=== PATIENT | male | born 1960 | race Caucasian/White ===

== ENCOUNTER → 2016-12-05 | Outpatient (CLI) | payer BC ==
[~2016-12-05] MED LIST: ASPI81TA28 PO; ATOR-26 PO; LEVO100T7 PO; LISI-526 PO; METF-384 PO; VRPSR240 PO
--- NOTE | 2016-12-05 09:28 | DIAGNOSTIC IMAGING REPORT ---
MRI OF THE CERVICAL SPINE WITHOUT CONTRAST CLINICAL HISTORY: Left arm numbness. Neurologic symptoms. COMPARISON: MRI of the cervical spine November 08, 2011. TECHNIQUE: Utilizing a 1.5 Ginny magnet and dedicated coil, multiplanar, multiecho imaging of the cervical spine was performed without IV contrast. FINDINGS: Alignment of the cervical spine is anatomic. Vertebral body heights are maintained. There is no intracanalicular mass or fluid collection. Paravertebral soft tissues are unremarkable. No suspicious marrow replacement is present. C2-C3: The central canal and the neural foramen are patent. C3-C4: The central canal is patent. There is moderate left neural foraminal stenosis due to uncovertebral hypertrophy and facet arthrosis. There is mild right neural foraminal stenosis. C4-C5: There is disc bulge with ligamentous hypertrophy. There is moderate narrowing of the central canal. This indents the ventral aspect of the cord. Similar findings were shown on exam of November 08, 2011. There is no cord signal abnormality. Severe narrowing of the left neural foramen is noted with moderate to severe narrowing of the right neural foramen. C5-C6: There is disc bulge. There is mild narrowing of the central canal. There is moderate narrowing of the left neural foramen. C6-C7: Disc bulge with a tiny central annular tear is noted. There is mild narrowing of the central canal. Moderate narrowing of the left neural foramen is present. C7-T1: Central canal and neural foramen are patent. IMPRESSION: 1. Moderate multilevel degenerative disc disease and facet arthrosis with minimal progression since exam of November 08, 2011. 2. Moderate central canal stenosis at C4-C5 due to disc bulge and ligamentous hypertrophy. Disc osteophyte complex indents the ventral aspect of the cord. No cord signal abnormality. 3. Moderate to severe multilevel neural foraminal stenosis, most pronounced at the C4-C5 level. Electronically signed by: Charan Griffin M.D. 12/05/2016 9:26 AM Dictated Date/Time: 12/05/2016 9:18 AM
== END | disposition home or self-care (01) ==
LOC: C.MRI 08:04
PROVIDERS: ATTEND Orthopaedic Surgery Orthopaedic Surgery of the Spine
DX: M50.20 Other cervical disc displacement, unspecified cervical region (principal)

== ENCOUNTER → 2017-05-10 | Outpatient (CLI) | payer BC ==
[2017-05-10 10:29] LABS: BASO % 0.4 %; BASO ABS # 0.02 K/uL (0-0.2); COMPLETE YES; EOS % 1.9 %; HEMATOCRIT 42.8 % (42-52); IG% 0.2 %; LYMPH % 33.4 %; LYMPH ABS # 1.76 K/uL (1.2-3.4); MEAN CELL VOLUME 89.5 fL (80-100); MEAN CORPUSCULAR HEMOGLOBIN 29.7 pg (25-34); MEAN CORPUSCULAR HGB CONC 33.2 g/dl (32-36); MEAN PLATELET VOLUME 9.4 fL (7.4-10.4); MONO % 10.4 %; NEUT % 53.7 %; PLATELET COUNT 274 K/uL (130-400); RED BLOOD COUNT 4.78 M/uL (4.7-6.1); WHITE BLOOD COUNT 5.27 K/uL (4.8-10.8)
[2017-05-10 10:38] LABS: ALT/SGPT 38 U/L (12-78); BLOOD UREA NITROGEN 18 mg/dl (7-18); BUN/CREATININE RATIO 18.2 (10-20); CALCIUM 8.9 mg/dl (8.5-10.1); CARBON DIOXIDE 29 mmol/L (21-32); CHLORIDE 107 mmol/L (98-107); GLUCOSE 108 mg/dl (70-99); POTASSIUM 4.3 mmol/L (3.5-5.1); SODIUM 140 mmol/L (136-145)
[2017-05-10 10:49] LABS: ALB/GLOB RATIO 1.3 (0.9-2); ALKALINE PHOSPHATASE 96 U/L (45-117); AST/SGOT 19 U/L (15-37); CHOLESTEROL 156 mg/dl (0-200); CHOLESTEROL/HDL RATIO 3.2; HDL CHOLESTEROL 49 mg/dl; LDL CHOLESTEROL CALCULATED 72 mg/dl; THYROID STIMULATING HORMONE 0.499 uIu/ml (0.300-4.500); TRIGLYCERIDES 174 mg/dl (0-150); VERY LOW DENSITY LIPOPROT CALC 35 mg/dl
[2017-05-10 11:25] LABS: ESTIMATED AVERAGE GLUCOSE 123 mg/dl; HA1C FLAG Normal (Normal)
== END | disposition home or self-care (01) ==
LOC: C.LAB1850 09:10
PROVIDERS: ATTEND Internal Medicine Pulmonary Disease
DX: I10 Essential (primary) hypertension (principal); E78.5 Hyperlipidemia, unspecified; R73.9 Hyperglycemia, unspecified; E03.9 Hypothyroidism, unspecified; E88.81 Metabolic syndrome and other insulin resistance